=== PATIENT | female | born 1955 | race Caucasian/White ===

== ENCOUNTER 2016-12-19 12:05 | Day surgery (SDC) | payer OTHER ==
[~2016-12-19] VITALS: Ht 154.9 cm; Wt 78.8 kg
[2016-12-19] VITALS (7 sets, daily range): BP systolic 123–145; BP diastolic 62–86; PULSE 66–98; RESP 11–18; O2SAT 95–99
[~2016-12-19 12:05] MED LIST: CHOL100043 PO; CeFAZolin 2 Gm/50 mL D5W IV Premix IV ONE; ESTR10TA VG; HYDR-4003 PO; MILK87.5 PO; ONDA4TAB6 PO; TAMS0.4C98 PO
[2016-12-19] MEDS ORDERED: Propofol 10,000 mCg/mL 20 mL Inj ONE (12:06)
[2016-12-19] MEDS ORDERED: MetoCLOpramide 5 mg/mL 2 mL Inj ONE (12:06)
[2016-12-19] MEDS ORDERED: fentaNYL-PF 50 mCg/mL 2 mL Inj ONE (12:06)
[2016-12-19] MEDS ORDERED: Ondansetron 2 mg/mL 2 mL Inj ONE (12:06)
[2016-12-19] MEDS ORDERED: Dexamethasone 4 mg/mL Inj ONE (12:06)
[2016-12-19] MEDS ORDERED: Phenylephrine/NS 100 mCg/mL 10 mL Syringe IVPUSH ONE (12:06)
[2016-12-19] MEDS: Lactated Ringer's 1,000 ML IV SCH ×2 (12:24→15:39)
[2016-12-19] MEDS ORDERED: CeFAZolin Inj 2 gm / 50mL D5W IV ONE (12:38)
[2016-12-19] MEDS ORDERED: EPHEDrine Sulfate 50 mg/mL Inj IVPUSH PRN (16:00)
[2016-12-19] MEDS ORDERED: fentaNYL-PF 50 mCg/mL 2 mL Inj IVPUSH PRN (16:00)
[2016-12-19] MEDS ORDERED: Lactated Ringer's 1,000 ML IV SCH (16:00)
[2016-12-19] MEDS ORDERED: Dexamethasone 4 mg/mL Inj IVPUSH PRN (16:00)
[2016-12-19] MEDS ORDERED: Phenylephrine 10,000 mCg/mL Inj IVPUSH PRN (16:00)
[2016-12-19] MEDS ORDERED: Lactated Ringer's 500 ML IV PRN (16:00)
[2016-12-19] MEDS ORDERED: MetoCLOpramide 5 mg/mL 2 mL Inj IVPUSH PRN (16:00)
[2016-12-19] MEDS ORDERED: Ondansetron 2 mg/mL 2 mL Inj IVPUSH PRN (16:00)
[2016-12-19] MEDS ORDERED: HYDROcodone-APAP 5-325 mg Tablet PO PRN (16:45)
--- NOTE | 2016-12-19 16:55 | PCM.ANEP1 ---
Post Anesthesia Phase 1 PACU Phase 1 Assessment Vital Signs Vital Signs Date Time Temp Pulse Resp B/P Pulse Ox O2 Delivery O2 Flow Rate FiO2 12/19/16 16:44 74 11 141/72 95 Room Air 12/19/16 16:36 77 13 145/71 95 Room Air 12/19/16 16:28 36.3 98 15 144/86 95 Room Air 12/19/16 12:22 36.8 74 18 123/62 99 Room Air Anesthetic Administered: GA Level of Alertness: Awake, talking HERNANDEZ's with Equal Strength: Yes Pain: No Nausea or Vomiting: No Oxygen Delivery: Room Air Lungs: Clear to Auscultation Dermatome Level: Full Sensation Live Cohn MD Dec 19, 2016 16:55
--- NOTE | 2016-12-19 16:55 | PCM.ANEP2 ---
Post Anesthesia Evaluation ASA/CMS Post Anesthesia VS in Patient's Normal Range?: Yes Resp Stable; Airway Patent?: Yes CV Function & Hydration Stable: Yes Mental Status Recovered?: Yes Pain control Satisfactory?: Yes N/V Control Satisfactory?: Yes Live Cohn MD Dec 19, 2016 16:55
--- NOTE | 2016-12-19 16:56 | PCM.HPANE ---
Patient Data Surgeon Admitting Provider: Attending Provider:Alise Chang MD Primary Care Physician:Maribell Miller Other Provider:Inez Mcdowellingham Anesthesia Reason for Visit Right Ureteral Stone Ht/WT & BMI Height (Feet): 5 Height (Inches): 1.00 Weight (Kilograms): 77.56 Body Mass Index 32.00 Allergies Coded Allergies: hydromorphone HCl (Verified Allergy, Severe, nausea/vomiting, 12/19/16) alendronate sodium (Verified Allergy, Unknown, 12/19/16) Past Anesthesia History Anesthesia History: Denies:: Abnormal Airway, Anesthesia Reactions, Difficult Intubation, Fam Anesthesia Reaction, Fam Malignant Hypertherm, Malignant Hyperthermia Diabetes History Hx Diabetes?: No MRSA MRSA: No Medications Reported Medications Ondansetron (Zofran)4 Mg Tablet4 Mg PO Q4H PRN For Nausea 12/16/16 Tamsulosin (Flomax)0.4 Mg Capsule0.4 Mg PO DAILY Ref 0 12/16/16 Hydrocodone-Acetaminophen 5-325 mg 1 Each Tablet1 Tablet PO Q4H PRN For Pain Ref 0 12/16/16 Cholecalciferol (Vitamin D3) (Vitamin D)1,000 Unit Tablet2,000 Unit PO DAILY #1 BOTTLE Ref 0 12/16/16 Estradiol (Vagifem)10 Mcg Rivlyc22 Mcg VG 3xweekly 12/16/16 Milk Thistle Seed Extract (Milk Thistle Extract)87.5 Mg Rylpqth53.5 Mg PO DAILY 12/16/16 Discontinued Reported Medications Cholecalciferol (Vitamin D3) (Vitamin D)2,000 Unit Capsule2,000 Unit PO DAILY 30 Days Ref 0 07/24/14 Progesterone,Micronized (Progesterone)100 Mg Paxvhqg633 Mg PO DAILY 07/24/14 Estradiol (Vagifem)10 Mcg Fngazr51 Mcg VG 3XW 07/23/14 Estradiol 0.5 Mg Tablet0.5 Mg PO DAILY 30 Days Ref 0 07/23/14 History History of ENT Problems?: Yes HEENT History: Positive for:: Sinus Problem Denies:: Abnormal Airway Cataracts Difficult Intubation Dysphagia Hearing Problem TMJ Hx of Heart Problems?: No Cardiovascular History: Denies:: Abdominal Aortic Aneurism Atrial Fibrillation Cardiac Surgery Chest Pain Congestive Heart Failure Edema Heart Murmur Hypertension Irregular Heartbeat Pacemaker Hx of Respiratory Problem?: No Respiratory History: Denies:: Asthma COPD Chest Surgery Cough Dyspnea Emphysema Hemoptysis Oxygen Administration Pneumonia Pulmonary Embolism Tuberculosis Use of C-PAP Machine Hx Neurologic Problems?: No Neurological History: Denies:: Alzheimer's Disease CVA Dementia Dizziness Headaches Multiple Sclerosis Parkinson's Disease Seizures Hx of GI Problems?: Yes Gastrointestinal History: Positive for:: Heartburn Denies:: Cirrhosis Diverticulitis Gastroesphageal Reflux Gastrointestinal Bleeding Hepatitis Hiatal Hernia Rectal Bleeding Hx of Problems?: Yes Genitourinary History: Positive for:: Kidney Stones (right ureteral stone current admission problem) Urinary Tract Infection Denies:: HX of Hemodialysis HX of Peritoneal Dialysis: No Female Hx: Positive for:: Pelvic Inflammatory Denies:: Currently Endometriosis Problems with Breasts? Skin History: Positive for:: History Skin Disorders? (Rosacea) Hx Musculoskeletal Problems?: Yes Musculoskeletal History: Positive for:: Back Injury Degenerative Joint (neck) Musculoskeletal Trauma (broke left shoulder) Denies:: Joint Replacement Systemic Lupus Hx of Psycho/Social Problems?: No Psycho Social History: Denies:: Anxiety Bipolar Disorder Hx Depression Suicide Attempt Hx Surgeries?: Yes (past eswl, lithotripsy, tubal) Hx Any Other Health Problems?: No Other History: Positive for:: Hospitalization Denies:: Cancer Endocrine Disease Thyroid Disease History Blood Transfusions: Denies:: Blood Transfusions Hx Diabetes: No Hx Alcohol Use: Yes (3-4 X WEEK, WINE)Hx Substance Use: No Smoking Status: Former Smoker Have You Smoked inLast 12 mo: No Stop/Bang S-Snoring: Do You Snore Loudly: No T-Tired: feel tired, fatigued: No O-Obsered: Observed not breath: No P-Blood Pressure: treated: No B- Body Mass Index > 35 kg/m2: No A- Age over 50: Yes N- Neck Large Circumference: No G- Gender Male: No LUIS Total Score: 1 Risk Assessment Category Category 1A: Patient has history of documented sleep apnea, and HAS NOT received any narcotic, sedative or anesthesia administration during this stay. Category 1B: Patient has history of documented sleep apnea, and HAS received any narcotic , sedative or anesthesia administration during this stay Category 2: Patient has SUSPECTED Obstructive Sleep Apnea, and HAS received any narcotic , sedative or anesthesia administration during this stay. Category 3: Patient has SUSPECTED Obstructive Sleep Apnea and HAS NOT received narcotic, sedative or anesthesia administration during this stay. Category 4: Outpatient in Procedural Areas with known sleep apnea or who screen positive for High Risk via the STOP/BANG questionnaire. Exam Exam General Appearance: Alert, Oriented X3, Cooperative, No Acute Distress HEENT/AIRWAY: MP 2 Lungs: Clear to Auscultation Heart: Exam Unremarkable Plan Impression Patient chart reviewed, patient interviewed and anesthestic plan with risks, benefits, and alternatives discussed, and informed consent obtained. NPO Status: 07/24/14 ASA Physical Status: ASA2 Mod Systemic Disease Anesthetic Plan: GA Bene/Risks/Altern/Consents: Yes HP Complete Prior to Induction: Yes Live Cohn MD Dec 19, 2016 06:51
--- NOTE | 2016-12-19 22:08 | DRSVH ---
PROCEDURE: X-RAY RETROGRADE UROGRAPHY INDICATIONS: RIGHT STENT PLACEMENT TECHNIQUE: 3 intra-operative images acquired by the Urology service. COMPARISON: [facility], CT, CT KUB, 12/06/2016, 11:54. FINDINGS: The first image shows contrast in the right renal collecting system and ureter. Filling de fects at the renal pelvis ureter junction and at the level of the proximal ureter are present. One of these probably corresponds to the stone on the right on the recent CT KUB of 12/06/16. The second keegan m shows a wire extending up into the right renal pelvis. The third film shows the proximal end of a s tent in the lower pole of the right renal pelvis and extending into the visualized portion of ureter. IMPRESSION: Films documented stent placement in the right renal collecting system. Dictated by: René Stack M.D. on 12/19/2016 at 22:04 Approved by: René Stack M.D. on 12/19/2016 at 22:07
--- NOTE | 2016-12-20 00:54 | OP ---
[address] [address] OPERATIVE REPORT PATIENT: KB SILVERMAN : 1955 MR#: [id number] ADMIT: 12/19/2016 JOB ID: [id number] DATE OF SURGERY: 12/19/2016 PREOPERATIVE DIAGNOSIS(ES): Right ureteral stone. POSTOPERATIVE DIAGNOSIS(ES): Right ureteral stone. PROCEDURE PERFORMED: 1. Cystoscopy and right retrograde pyelogram. 2. Right ureteroscopy. 3. Right ureteral stent placement. SURGEON: Alise Chang MD. AUTO PARKER: None. FINDINGS: Narrowing of the ureter proximally. ANESTHESIA: General. ESTIMATED BLOOD LOSS: Less than 2 mL. DRAINS: 6 x 22 right double-J ureteral stent. SPECIMENS: None. COMPLICATIONS: None. CONDITION: Stable. INDICATION: The patient is a 61-year-old woman with a 7 mm right ureteral stone. CT scan also demonstrated a potentially forming stone in the right upper pole, though it did not appear to be very discrete. She now presents for the aforementioned procedure. DESCRIPTION OF PROCEDURE: After informed consent was obtained the patient was taken to the operating room. A time-out was performed, identifying correct patient, surgical site, and procedure. General anesthesia was smoothly induced. She was placed in the lithotomy position and all pressure points were identified and appropriately padded. Her genitals were then prepped and draped in a sterile fashion. A 22-Austrian rigid cystoscope was applied to the patient's urethra and advanced to the bladder. The bladder was drained. The bladder was normal. The right ureteral orifice was seen in orthotopic position. It was cannulated with a 5-Austrian open-ended Pollack catheter. Retrograde pyelogram was performed. It appeared normal, though there were some air bubbles induced with the procedure. A Sensor Tip wire was used to cannulate the Pollack and advanced to the renal pelvis as seen under fluoroscopy. The Pollack was then backloaded. A second Sensor Tip wire was then advanced to the renal pelvis as seen under fluoroscopy. Semi-rigid ureteroscopy then commenced. The ureteroscope was able to be navigated to about care home up the ureter. There was no stone seen. The ureteroscope was then brought down under direct vision. One of the Sensor Tip wires was then backloaded into a 12/14 access sheath, 28 cm long. This access sheath was then able to be navigated about the mid ureter. Flexible ureteroscopy then commenced. The ureteroscope could not be navigated much more beyond just beyond the care home point of the ureter. Gentle manipulation was used to attempt to bring the ureteroscope beyond this area, but there was just a narrowing there without evidence of stricture. The ureteroscope was then brought down to the access sheath and both were brought down in tandem. The ureter appeared normal otherwise. The remaining Sensor Tip wire was then backloaded into the cystoscope and a 6 x 22 double-J ureteral stent was loaded over the wire and advanced to renal pelvis as seen under fluoroscopy. The wire was then removed, leaving a nice coil in the patient's bladder as seen under direct vision. The bladder was then drained. The patient was then reversed from general anesthesia and taken to PACU in good and stable condition. SYEDA
[2016-12-27] MEDS ORDERED: OXYC1TAB24 PO (11:06)
[2016-12-27] MEDS ORDERED: AZO (11:08)
== END 2016-12-19 23:59 | disposition home or self-care (01) ==
LOC: SAS 12:05
PROVIDERS: ATTEND Urology
PROC: 0T768DZ Dilation of Right Ureter with Intraluminal Device, Via Natural or Artificial Opening Endoscopic (ICD-10-PCS; principal; 2016-12-19 14:00)
DX: N20.1 Calculus of ureter (principal); Z87.442 Personal history of urinary calculi; Z87.891 Personal history of nicotine dependence; Z87.440 Personal history of urinary (tract) infections
CPT/HCPCS: 52332; 52351; 74420; C2617; J0690; J1100; J1885; J2370; J2405; J2765; J3010; J7120; Q9967

== ENCOUNTER 2016-12-22 18:19 | Emergency (ER) | payer OTHER ==
[~2016-12-22] VITALS: Ht 157.5 cm; Wt 79.0 kg
[~2016-12-22 18:19] MED LIST changes: -CeFAZolin 2 Gm/50 mL D5W IV Premix IV ONE
[2016-12-22 18:22] VITALS: BP 118/84; PULSE 73; RESP 18; O2SAT 97
[2016-12-22 18:33] VITALS: BP 120/76; PULSE 81; RESP 18; O2SAT 96
[2016-12-22] MEDS ORDERED: Ondansetron 2 mg/mL 2 mL Inj IVPUSH ONE ×2 (19:20→20:30)
[2016-12-22] MEDS ORDERED: 0.9% Sodium Chloride 1,000 ML IV ONE (19:20)
--- NOTE | 2016-12-22 19:26 | ED.REPORT ---
HPI-Abd Pain F 40 and Over Date of Service Dec 22, 2016 ED Provider: Zee Robles MD 61 year old female with a history of UTI's presents to the ER accompanied by her complaining of worsening right flank pain. Patient was seen four days ago for lithotripsy to treat a known right side kidney stone diagnosed in September 2016, but the procedure was unsuccessful. At that time she had a ureteral stent placed and was scheduled for a second lithotripsy 12/29/[address] Enrique Sanders, Urology. She was told by her surgeon to come to the ER for uncontrollable pain. Right flank pain recurred this morning around 04:00, has been constant since, and is uncontrollable with prescribed Vicodin. Pain radiates to the front. Associated symptoms include chills, nausea, and vomiting. Patient is unable to confirm hematuria, and denies fever. Nursing Notes Stated Complaint: POSS KIDNEY STONE Chief Complaint: Female Abdominal Pain Nursing Notes Reviewed: Yes Allergies: Coded Allergies: hydromorphone HCl (Verified Allergy, Severe, nausea/vomiting, 12/19/16) alendronate sodium (Verified Allergy, Unknown, 12/19/16) Scheduled Cephalexin (Keflex) 500 Mg Capsule 500 MG PO QID Cholecalciferol (Vitamin D3) (Vitamin D) 1,000 Unit Tablet 2,000 UNIT PO DAILY Estradiol (Vagifem) 10 Mcg Tablet 10 MCG VG 3xweekly Milk Thistle Seed Extract (Milk Thistle Extract) 87.5 Mg Capsule 87.5 MG PO DAILY Tamsulosin (Flomax) 0.4 Mg Capsule 0.4 MG PO DAILY Scheduled PRN Hydrocodone-Acetaminophen 5-325 mg (Hydrocodone-Acetaminophen 5-325 mg) 1 Each Tablet 1 TABLET PO Q4H PRN PRN For Pain Ondansetron (Zofran) 4 Mg Tablet 4 MG PO Q4H PRN PRN For Nausea General Time Seen by MD: 19:19 Chief Complaint Flank pain right Hx Obtained From: Patient Arrived By: Walk-in Sudden in Onset?: No Onset Occurred: 13 - 16 hours ago Symptom Duration: Since onset Progression since Onset: Constant Location: : Flank right Quality: Painful Severity: Current: Moderate Severity: Maximum: Moderate Associated with: Reports: Nausea, Vomiting, Denies: Fever, Hematuria Pertinent Negative: Pt denies other symptoms Context Related History: Reports: Urinary tract infection Recent Healthcare: Recent doctor visit Similar Sx Previous: Yes Past Medical History Past Medical History UTI Kidney stones Reports: GERD Past Surgical History Lithotripsy Reports: Tubal ligation Smoking History Former Smoker Social History Alcohol Use: 1-3 per week Other Social History: Good social support, Ambulatory Status Independent Review of Systems Constitutional: Reports: Chills, Denies: Fever GI: Reports: Nausea, Vomiting, Denies: Abdominal pain, Constipation, Diarrhea Female: Reports: Dysuria, Flank pain (Right), Denies: Hematuria Complete sys rev & neg: except as marked. Physical Exam Vital Signs Vital Signs (First) Date Time Temp Pulse Resp B/P Pulse Ox O2 Delivery O2 Flow Rate FiO2 12/22/16 18:22 36.2 73 18 118/84 97 Room Air Initial VS: Reviewed Head / Eyes: Atraumatic, Normocephalic Neck: Supple, Non-tender, Full range of motion Extremities: Vascular intact, Neuro intact, No swelling, No tenderness Skin: Warm, Dry, No cyanosis Neurologic: Alert, Oriented, Nonfocal General/Constitutional: Awake, Alert Respiratory / Chest: Breath sounds NL, Breath sounds = bilat, No respiratory distress, No rales, No rhonchi, No wheezing, No stridor Cardiovascular: Heart rate NL, Regular rhythm, Heart sounds NL, Peripheral circulation NL Abdomen: Soft, Non-tender, No guarding, No rebound, No distention Back: Full range of motion, No midline vertebral tend Mild Right CVA tenderness. Interpretation & Diagnostics Lab Results Interpretation Result Diagram: 12/22/16191912/22/161919 Test 12/22/16 19:20 12/22/16 19:54 White Blood Count 9.0th/mm3 (3.8-10.1) Red Blood Count 4.49mil/mm3 (3.90-5.20) Hemoglobin 13.1g/dL (12.0-15.6) Hematocrit 39.5% (35.0-46.0) Mean Corpuscular Volume 88.0fL (81-100) Mean Corpuscular Hemoglobin 29.2pg (27.0-35.0) Mean Corpuscular Hemoglobin Concent 33.2% (32.0-37.0) Red Cell Distribution Width 13.1% (12.3-15.4) Platelet Count 269bil/L (150-400) Neutrophils (%) (Auto) 46.3% (40-74) Lymphocytes (%) (Auto) 42.6% (14-46) Monocytes (%) (Auto) 9.1% (4-12) Eosinophils (%) (Auto) 1.6% (0-5) Basophils (%) (Auto) 0.2% (0-3) Sodium Level 139mEq/L (134-144) Potassium Level 4.2mEq/L (3.5-5.2) Chloride Level 101mEq/L (97-108) Carbon Dioxide Level 24mmol/L (18-29) Blood Urea Nitrogen 12mg/dL (8-27) Creatinine 0.80mg/dL (0.57-1.00) Estimat Glomerular Filtration Rate 104mL/min (>59) Glucose Level 98mg/dL (60-99) Calcium Level 9.7mg/dL (8.5-10.1) Magnesium Level 1.9mg/dL (1.6-2.6) Total Bilirubin 0.6mg/dL (0.0-1.2) Aspartate Amino Transf (AST/SGOT) 22U/L (0-50) Alanine Aminotransferase (ALT/SGPT) 25U/L (0-32) Alkaline Phosphatase 63U/L (25-165) Total Protein 7.0g/dL (6.4-8.4) Albumin 3.8g/dL (3.4-5.0) Lipase 34U/L (13-60) Urine Color Dark yellow (YELLOW) Urine Appearance Cloudy (CLEAR,HAZY) Urine pH 6.0 (5.0-8.0) Urine Specific [place] 1.020 (1.003-1.035) Urine Protein 100mg/dL (NEG,TRACE) Urine Glucose (UA) Negativemg/dL (NEGATIVE) Urine Ketones Tracemg/dL (NEGATIVE) Urine Occult Blood Large (NEGATIVE) Urine Nitrite Positive (NEGATIVE) Urine Bilirubin Negative (NEGATIVE) Urine Urobilinogen Normalmg/dL (NORMAL) Urine Leukocyte Esterase Small (NEGATIVE) Urine RBC >50/hpf (0-2) Urine WBC 6-10/hpf (0-5) Urine Epithelial Cells Occasional/hpf (NONE-MOD) Urine Crystals None seen (NONE SEEN) Urine Bacteria Few/hpf (NONE-FEW) Urine Hyaline Casts None/lpf (NONE) Urine Granular Casts None seen (NONE SEEN) Urine Waxy Casts None seen (NONE SEEN) Urine Red Blood Cell Casts None seen (NONE SEEN) Urine White Blood Cell Casts None seen (NONE SEEN) Urine Mucus None seen (None Seen) Urine Trichomonas None seen (NONE SEEN) Urine Yeast None (NONE SEEN) Urinalysis Comment None Urine Culture Reflexed Indicated CT Abd / Pelvis Interpretation IMPRESSION: 1. Right ureteral stent demonstrated with decreased right hydronephrosis. 2. A few additional punctate nonobstructing right renal stones demonstrated. 3. Small amount of gas within the urinary bladder likely related to prior catheterization. Dictated by: Gm Macedo M.D. on 12/22/2016 at 20:10 Approved by: Gm Macedo M.D. on 12/22/2016 at 20:14 Study type: Abdominal CT no contrast Interpretation / Wet Read by: Interpret - Radiologist Re-Eval/Medical Decision Med Decision/Clinical Course 62-year-old female with past medical history of ureteral stones status post stenting here with worsening pain. Differential diagnosis includes but is not limited to renal colic versus infected kidney stone versus discomfort from stent versus worsening hydronephrosis. CT scan shows relief of hydronephrosis. She has 6-10 white blood cells on her urinalysis, however, she has no left shift, no fevers. I have given her a dose of Keflex in the emergency department , and have gotten her pain under control. She is amenable to discharge with Keflex and has follow-up with urology later this week. She has been given very strict return precautions. Source of Hx: Old records Re-Evaluation/Progress #1: Time of Eval: 20:51 Re-Evaluation/Progress Note: Discussed lab and radiology results and plan to discharge pending PO challenge. Patient is amenable to the plan. Return precautions given. All other questions addressed. Re-Evaluation/Progress #2: Time of Eval: 21:54 Patient Status: Condition improved Re-Evaluation/Progress Note: Patient passed PO challenge. Nausea is improved. She is comfortable with discharge at this time. Counseled Regarding: Diagnosis, Lab results, Need for follow-up, When/why to return to ED Discharge & Departure Primary Impression: Renal colic Disposition: Home Discharge Condition All VS Reviewed: Yes Condition: Stable Patient Instructions: Renal Colic (DC) Additional Instructions: Your evaluation was reassuring, I do not believe that there is any immediately dangerous cause for your symptoms at this time. Take the prescribed Keflex as directed. It is important that you take the entire course of this antibiotic, even if you begin to feel better. Use your Zofran as needed for nausea, up to once every 6 hours. Keep your appointment with Dr. Sanders, Urology, for next week. Return to the ER if you develop blood in your urine, or any other worsening or concerning symptoms. Referrals: Maribell Miller (PCP) Radhaibmary Attestation Portions of this note were transcribed by Sarmad Vieyra. I, Dr. Robles, personally performed the history, physical exam and medical decision-making; I reviewed and confirmed the accuracy of the information in the transcribed note. Signed by: Rich Chauhan. 12/22/2016 - 21:54 copies to: Maribell Miller Rebecca A MD Dec 22, 2016 19:26 SARMAD VIEYRA Dec 22, 2016 19:37
[2016-12-22 19:48] LABS: BASOPHILS % (AUTO) 0.2 % (0-3); EOSINOPHILS % (AUTO) 1.6 % (0-5); MONOCYTES % (AUTO) 9.1 % (4-12); Mean Corpuscular Hemoglobin 29.2 pg (27.0-35.0); NEUTROPHILS % (AUTO) 46.3 % (40-74); Platelet Count 269 bil/L (150-400)
--- NOTE | 2016-12-22 20:15 | DRSVH ---
PROCEDURE: CT KUB ([id number]) INDICATIONS: right flank pain TECHNIQUE: Noncontrast 5 mm thick sections acquired from the diaphragms to the symphysis. 5 mm thick coronal an d sagittal reformats were then performed. For radiation dose reduction, the following was used: aut omated exposure control, adjustment of mA and/or kV according to patient size. COMPARISON: [facility], CT, CT KUB, 12/06/2016, 11:54. FINDINGS: Image quality: Excellent. Lung bases: There is mild atelectasis in the lung bases. Heart size is normal. There is a small hil ar hernia. Urinary system: There is a right ureteral stent with the proximal coil in the right renal pelvis and the distal coil in the urinary bladder. There is decreased hydronephrosis in the right kidney with mild residual pelvocaliectasis. The proximal right ureter stone seen on the prior study is not discr etely visualized. There are 2-3 punctate nonobstructing stones in the right kidney measuring up to 2 mm. Left kidney demonstrates no renal stones or hydronephrosis. There are a few parapelvic renal c ysts. Left ureter is normal in caliber. The bladder demonstrates no calcified bladder stones. Ther e is a small amount of gas within the bladder likely related to prior catheterization. Other solid organs: Liver and spleen are normal in size. Gallbladder is within normal limits withou t calcified gallstones. Pancreas is normal in contours. No adrenal nodules. Peritoneum and bowel: Unenhanced bowel loops demonstrate normal wall thickness and caliber. No evid ence of appendicitis. No free fluid or air. Nodes and vessels: No retroperitoneal or mesenteric adenopathy by size criteria. Aorta and inferior vena cava are normal in caliber. Abdominal wall: No ventral hernias. Pelvis: No free pelvic fluid. No inguinal hernias or adenopathy. Bones: No suspicious bony lesions. No vertebral body compression fractures. IMPRESSION: 1. Right ureteral stent demonstrated with decreased right hydronephrosis. 2. A few additional punctate nonobstructing right renal stones demonstrated. 3. Small amount of gas within the urinary bladder likely related to prior catheterization. Dictated by: Gm Macedo M.D. on 12/22/2016 at 20:10 Approved by: Gm Macedo M.D. on 12/22/2016 at 20:14
[2016-12-22 20:18] LABS: Magnesium 1.9 mg/dL (1.6-2.6)
[2016-12-22 20:21] LABS: APPEARANCE,URINE CLOUDY (CLEAR,HAZY); COLOR,URINE DARK YELLOW (YELLOW); OCCULT BLOOD,URINE LARGE (NEGATIVE); UROBILINOGEN,URINE NORMAL (NORMAL)
[2016-12-22] MEDS ORDERED: HYDROcodone-APAP 5-325 mg Tablet PO ONE (20:55)
[2016-12-22] MEDS ORDERED: CEPH-512 PO (21:59)
[2016-12-22 22:12] VITALS: BP 112/58; PULSE 68; RESP 16; O2SAT 98
[2016-12-22 22:13] VITALS: BP 112/58; PULSE 68; RESP 20; O2SAT 98
[2016-12-27] MEDS ORDERED: OXYC1TAB24 PO (11:06)
[2016-12-27] MEDS ORDERED: AZO (11:08)
== END 2016-12-22 22:14 | disposition home or self-care (01) ==
LOC: SED 18:19
DX: N23 Unspecified renal colic (principal); K21.9 Gastro-esophageal reflux disease without esophagitis; Z87.440 Personal history of urinary (tract) infections; Z87.891 Personal history of nicotine dependence
CPT/HCPCS: 36415; 74176; 80053; 81000; 83690; 83735; 85025; 87086; 96361; 96374; 96375; 96376; 99285; J1885; J2405; J7030

== ENCOUNTER 2016-12-29 06:19 | Day surgery (SDC) | payer OTHER ==
[2016-12-29] VITALS (10 sets, daily range): BP systolic 106–126; BP diastolic 62–73; PULSE 69–94; RESP 15–26; O2SAT 91–97
[~2016-12-29] VITALS: Ht 165.1 cm; Wt 80.2 kg
[~2016-12-29 06:19] MED LIST changes: +AZO; +CeFAZolin 2 Gm/50 mL D5W IV Premix IV ONE; -HYDR-4003 PO; +OXYC1TAB24 PO
[2016-12-29] MEDS ORDERED: Propofol 10,000 mCg/mL 20 mL Inj ONE (06:20)
[2016-12-29] MEDS ORDERED: Ondansetron 2 mg/mL 2 mL Inj ONE (06:20)
[2016-12-29] MEDS ORDERED: Dexamethasone 4 mg/mL Inj ONE (06:20)
[2016-12-29] MEDS ORDERED: fentaNYL-PF 50 mCg/mL 2 mL Inj ONE (06:20)
[2016-12-29] MEDS ORDERED: Ketamine 10 mg/mL 20 mL Inj ONE (06:20)
[2016-12-29] MEDS ORDERED: CeFAZolin Inj 2 gm / 50mL D5W IV ONE (06:37)
[2016-12-29] MEDS: Lactated Ringer's 1,000 ML IV SCH ×2 (06:41→08:45)
[2016-12-29] MEDS ORDERED: Lactated Ringer's 1,000 ML IV SCH (06:57)
[2016-12-29] MEDS ORDERED: Lactated Ringer's 500 ML IV PRN (06:57)
[2016-12-29] MEDS ORDERED: Dexamethasone 4 mg/mL Inj IVPUSH PRN (07:00)
[2016-12-29] MEDS ORDERED: EPHEDrine Sulfate 50 mg/mL Inj IVPUSH PRN (07:00)
[2016-12-29] MEDS ORDERED: Ondansetron 2 mg/mL 2 mL Inj IVPUSH PRN (07:00)
[2016-12-29] MEDS ORDERED: Phenylephrine 10,000 mCg/mL Inj IVPUSH PRN (07:00)
[2016-12-29] MEDS ORDERED: Labetalol 5 mg/mL 4 mL Inj IV PRN (07:00)
[2016-12-29] MEDS ORDERED: MetoCLOpramide 5 mg/mL 2 mL Inj IVPUSH PRN (07:00)
--- NOTE | 2016-12-29 08:42 | PCM.HPANE ---
Patient Data Date of Service: Dec 29, 2016 Surgeon Admitting Provider: Attending Provider:Leora Sanders MD Primary Care Physician:Maribell Miller Other Provider:Hany Mcdowell Anesthesia Reason for Visit Right Ureteral Stone Ht/WT & BMI Height (Feet): 5 Height (Inches): 5 Weight (Kilograms): 80.2 Body Mass Index 29.00 Allergies Coded Allergies: hydromorphone HCl (Verified Allergy, Severe, nausea/vomiting, 12/19/16) alendronate sodium (Verified Allergy, Unknown, 12/19/16) carisoprodol (Verified Allergy, Unknown, 12/27/16) Past Anesthesia History Anesthesia History: Denies:: Abnormal Airway, Anesthesia Reactions, Difficult Intubation, Fam Anesthesia Reaction, Fam Malignant Hypertherm, Malignant Hyperthermia Diabetes History Hx Diabetes?: No MRSA MRSA: No Medications Home Meds Incl Beta Fabio: No Reported Medications [Azo (Otc)] No Conflict Check6-8 Tab DAILY PRN For Pain 12/27/16 oxyCODONE-Acetaminophen 5-325 mg 1 Each Tablet1 Tab PO Q4H PRN For Pain Ref 0 12/27/16 Ondansetron (Zofran)4 Mg Tablet8 Mg PO Q4H PRN For Nausea 12/16/16 Tamsulosin (Flomax)0.4 Mg Capsule0.4 Mg PO DAILY Ref 0 12/16/16 Cholecalciferol (Vitamin D3) (Vitamin D)1,000 Unit Tablet2,000 Unit PO DAILY #1 BOTTLE Ref 0 12/16/16 Estradiol (Vagifem)10 Mcg Epficq21 Mcg VG 3xweekly 12/16/16 Milk Thistle Seed Extract (Milk Thistle Extract)87.5 Mg Ciiffoj97.5 Mg PO DAILY 12/16/16 Discontinued Reported Medications Hydrocodone-Acetaminophen 5-325 mg 1 Each Tablet1 Tablet PO Q4H PRN For Pain Ref 0 12/16/16 Discontinued Scripts Cephalexin (Keflex)500 Mg [id number] Mg PO QID #40 CAPSULE Prov:Zee Robles MD 12/22/16 History History of ENT Problems?: Yes HEENT History: Positive for:: Sinus Problem Denies:: Abnormal Airway Cataracts Difficult Intubation Dysphagia Hearing Problem TMJ Hx of Heart Problems?: No Cardiovascular History: Denies:: Abdominal Aortic Aneurism Atrial Fibrillation Cardiac Surgery Chest Pain Congestive Heart Failure Edema Heart Murmur Hypertension Irregular Heartbeat Pacemaker Hx of Respiratory Problem?: No Respiratory History: Denies:: Asthma COPD Chest Surgery Cough Dyspnea Emphysema Hemoptysis Oxygen Administration Pneumonia Pulmonary Embolism Tuberculosis Use of C-PAP Machine Hx Neurologic Problems?: No Neurological History: Denies:: Alzheimer's Disease CVA Dementia Dizziness Headaches Multiple Sclerosis Parkinson's Disease Seizures Hx of GI Problems?: Yes Gastrointestinal History: Positive for:: Heartburn Denies:: Cirrhosis Diverticulitis Gastroesphageal Reflux Gastrointestinal Bleeding Hepatitis Hiatal Hernia Rectal Bleeding Hx of Problems?: Yes Genitourinary History: Positive for:: Kidney Stones (right ureteral stone current admission problem/surg here 12/19/16) Denies:: HX of Hemodialysis Urinary Tract Infection (hx) HX of Peritoneal Dialysis: No Female Hx: Positive for:: Pelvic Inflammatory Denies:: Currently Endometriosis Problems with Breasts? Skin History: Positive for:: History Skin Disorders? (Rosacea) Hx Musculoskeletal Problems?: Yes Musculoskeletal History: Positive for:: Back Injury Degenerative Joint (neck) Musculoskeletal Trauma (broke left shoulder) Denies:: Joint Replacement Systemic Lupus Hx of Psycho/Social Problems?: No Psycho Social History: Denies:: Anxiety Bipolar Disorder Hx Depression Suicide Attempt Hx Surgeries?: Yes (past eswl, lithotripsy, tubal) Hx Any Other Health Problems?: Yes Other History: Positive for:: Hospitalization Denies:: Cancer Endocrine Disease Thyroid Disease History Blood Transfusions: Denies:: Blood Transfusions Hx Diabetes: No Hx Alcohol Use: YesAlcoholic Drinks Per Day: 3-4xweeklyHx Substance Use: No Smoking Status: Former Smoker Have You Smoked inLast 12 mo: No Stop/Bang S-Snoring: Do You Snore Loudly: No T-Tired: feel tired, fatigued: No O-Obsered: Observed not breath: No P-Blood Pressure: treated: No B- Body Mass Index > 35 kg/m2: No A- Age over 50: Yes N- Neck Large Circumference: No G- Gender Male: No LUIS Risk Assessment: Low Risk, <3 Yes Risk Assessment Category Category 1A: Patient has history of documented sleep apnea, and HAS NOT received any narcotic, sedative or anesthesia administration during this stay. Category 1B: Patient has history of documented sleep apnea, and HAS received any narcotic , sedative or anesthesia administration during this stay Category 2: Patient has SUSPECTED Obstructive Sleep Apnea, and HAS received any narcotic , sedative or anesthesia administration during this stay. Category 3: Patient has SUSPECTED Obstructive Sleep Apnea and HAS NOT received narcotic, sedative or anesthesia administration during this stay. Category 4: Outpatient in Procedural Areas with known sleep apnea or who screen positive for High Risk via the STOP/BANG questionnaire. Exam Exam Vital Signs Vital Signs Date Time Temp Pulse Resp B/P Pulse Ox O2 Delivery O2 Flow Rate FiO2 12/29/16 06:58 36.7 69 18 122/72 95 Room Air General Appearance: Alert, Oriented X3, Cooperative, No Acute Distress HEENT/AIRWAY: MP 2 Lungs: Clear to Auscultation, Normal Air Movement Heart: Exam Unremarkable, Regular Rate/Rhythm, No Murmurs/Rubs/Gallops Meds/Labs/Diagnostics Admission Meds Current Medications Lactated Ringer's (Lr) 1,000 ml @ 120 mls/hr Q8H20M IV Last administered on t 06:41; Start 12/29/16 at 05:00; Stop 12/29/16 at 13:19 Plan Impression Patient chart reviewed, patient interviewed and anesthestic plan with risks, benefits, and alternatives discussed, and informed consent obtained. NPO Status: 12/29/16 WATER WITH PILL ASA Physical Status: ASA2 Mod Systemic Disease Anesthetic Plan: GA Bene/Risks/Altern/Consents: Yes HP Complete Prior to Induction: Yes Aleksandr Portillo MD Dec 29, 2016 08:42
[2016-12-29] MEDS ORDERED: Belladonna Alk-Opium 60 mg Rectal Suppository RECTAL ONE (09:00)
[2016-12-29] MEDS ORDERED: HYDROcodone-APAP 5-325 mg Tablet PO PRN (09:30)
[2016-12-29] MEDS: fentaNYL-PF 50 mCg/mL 2 mL Inj IVPUSH PRN ×2 (09:47→09:57)
--- NOTE | 2016-12-29 23:56 | OP ---
[address] [address] OPERATIVE REPORT PATIENT: KB SILVERMAN : 1955 MR#: [id number] ADMIT: 12/29/2016 JOB ID: [id number] DATE OF SURGERY: SURGEON: Leora Sanders MD PREOPERATIVE DIAGNOSIS(ES): Right ureteral calculus. POSTOPERATIVE DIAGNOSIS(ES): Right ureteral calculus. PROCEDURES: 1. Cystoscopy. 2. Ureteroscopy. 3. Laser lithotripsy. 4. Stone basketing. 5. Stent exchange. ANESTHESIA: General anesthetic, Dr. Aleksandr Portillo. DESCRIPTION OF OPERATION: Under general anesthetic, the patient was placed in lithotomy position and genitalia prepped and draped in a sterile manner. A 22-Khmer cystoscope was introduced through a normal urethra. The stent protruding from the right ureteral orifice was grasped with an alligator forceps and removed. A 0.035 Glidewire was advanced to the level of the right renal pelvis. Alongside the wire, a 7-Khmer semi-rigid ureteroscope was passed. In the upper 3rd of the ureter, the stone was encountered. Using a 270 micron laser fiber, the stone was fragmented. Using a nitinol tipless basket, the stone fragments were extracted and will be sent to Pathology. A 6-Khmer, 20 cm double-J stent was then passed over the wire. When it was confirmed to be in good position fluoroscopically, the wire was withdrawn. The patient tolerated the procedure well. A B and O suppository was given for postoperative analgesia. The patient left the operating room in good condition.
[2017-01-05 15:09] LABS: Stone Color Brown (.)
== END 2016-12-29 23:59 | disposition home or self-care (01) ==
LOC: SAS 06:19
PROVIDERS: ATTEND Urology
DX: N20.1 Calculus of ureter (principal); R31.9 Hematuria, unspecified
CPT/HCPCS: 52356; 76000; 82360; C2617; J0690; J1100; J2250; J2405; J3010; J7120

== ENCOUNTER → 2017-05-11 | Day surgery (SDC) | payer OTHER ==
[~2017-05-11] VITALS: Ht 157.5 cm; Wt 77.1 kg
[~2017-05-11] MED LIST changes: -CeFAZolin 2 Gm/50 mL D5W IV Premix IV ONE; +ESOM20CA28 PO; +HYDR12.5 PO; +Sodium Chloride LOK Flush 10 mL Syringe IV PRN; +fentaNYL-PF 50 mCg/mL 2 mL Inj IVPUSH PRN
[2017-05-11 10:27] VITALS: BP 116/71; PULSE 63; RESP 12; O2SAT 98
[2017-05-11] MEDS: 0.9% Sodium Chloride 1,000 ML IV PRN ×2 (11:27→11:40)
[2017-05-11 11:44] VITALS: BP 115/71; PULSE 69; RESP 16; O2SAT 93
[2017-05-11 11:54] VITALS: BP 115/71; PULSE 83; RESP 16; O2SAT 95
--- NOTE | 2017-05-11 11:58 | ENDO ---
[address] [address] ENDOSCOPY PROCEDURE PATIENT: KB SILVERMAN : 1955 MR#: [id number] ADMIT: 05/11/2017 JOB ID: [id number] DATE OF SERVICE: 05/11/2017 PROCEDURE: Esophagogastroduodenoscopy. INDICATION: Epigastric pain. Patient's ASA classification is two. Mallampati score is two. MEDICATIONS: Versed 5 mg, fentanyl 75 mcg. INSTRUMENT USED: [id number]-180J PROCEDURE DETAILS: After informed consent was obtained, patient was brought into the GI suite, where she was placed on oxygen via nasal cannula and monitored with continuous pulse oximeter, telemetry, and blood pressure monitoring. A time-out was performed. Then, she was placed in a left lateral decubitus position. Medications were administered for sedation. A bite block was placed. The standard EGD scope was inserted through the bite block and advanced under direct visualization to the second portion of duodenum without difficulty. FINDINGS: 1. In the duodenal bulb, the mucosa had a micronodular appearance. Multiple random biopsies were obtained. The remainder of the duodenal exam was otherwise unremarkable. 2. Normal-appearing pylorus, antrum and gastric body. 3. Retroflexed views in the gastric body revealed a normal-appearing cardia and fundus. 4. The top of the gastric folds were at approximately 36 cm. [place]-colored mucosa was seen extending to 35 cm with irregular margins. The remainder of the esophagus otherwise unremarkable. IMPRESSION: 1. Nodular duodenal bulb mucosa. 2. C0 M1 suspected Negron's. RECOMMENDATIONS: 1. Continue PPI daily. 2. Reflux precautions. 3. Follow up in GI clinic in 4-6 weeks. COMPLICATIONS: None. ESTIMATED BLOOD LOSS: Less than 5 mL
[2017-05-11 12:04] VITALS: BP 109/69; PULSE 68; RESP 16; O2SAT 97
--- NOTE | 2017-05-15 16:42 | PATH ---
SURGICAL PATHOLOGY Attending Physician:Luis Alberto Lopez CASE STATUS: Signed Out PATIENT NAME: KB SILVERMAN PID: [id number] : 1955 DATE COLLECTED:05/11/2017 21:15 SPECIMEN: 1: Duodenum, Biopsy 2: Gastric, Biopsy 3: Esophagus, Biopsy CLINICAL HISTORY: GERD 1). DUODENUM BULB BIOPSY 2). GASTRIC BIOPSY, RULE OUT H.PYLORI 3). GE JUNCTION BIOPSY FINAL DIAGNOSIS: 1. Duodenal Bulb, Biopsy: Duodenal mucosa with foveolar metaplasia. Negative for active inflammation, features of sprue, dysplasia or malignancy. 2. Stomach, Biopsy: Gastric body mucosa with no diagnostic abnormality. Helicobacter organisms not identified. Negative for intestinal metaplasia, dysplasia or malignancy. 3. Gastroesophageal Junction, Biopsy: Columnar mucosa with chronic inflammation. Negative for intestinal metaplasia, dysplasia or malignancy. ICD10: R10.13 GROSS DESCRIPTION: Received three formalin-filled containers, each labeled with the patient' s name. 1. Received in formalin, labeled with the patient' s name and "duodenum bulb biopsy", are three fragments of lemons, soft tissue ranging from 0.1 x 0.1 x 0.1 cm to 0.4 x 0.3 x 0.2 cm. The fragments are totally submitted in cassette 1A. 2. Received in formalin, labeled with the patient' s name and "gastric biopsy", are two fragments of lemons, soft tissue ranging from 0.2 x 0.2 x 0.1 cm to 0.4 x 0.2 x 0.1 cm. The fragments are totally submitted in cassette 2A. 3. Received in formalin, labeled with the patient' s name and "GE junction biopsy", is one fragment of lemons, soft tissue measuring 0.4 x 0.2 x 0.2 cm. The fragment is totally submitted in cassette 3A. [id number]) ICD-9 CODES: CPT CODES: 1: 51131 2: 48021 3: 91718 Electronically Signed Out Nikko Talavera MD, Ph.D. [facility] Pathology [facility] [address], [place] [address] Technical component performed at [facility], [address], [place], [address]
== END | disposition home or self-care (01) ==
LOC: END 01:32
PROVIDERS: ATTEND Internal Medicine Gastroenterology
DX: K21.9 Gastro-esophageal reflux disease without esophagitis (principal)
CPT/HCPCS: 43239; G0500; J2250; J3010; J7030